=== PATIENT | female | born 1945 | race Caucasian/White ===

== ENCOUNTER 2018-01-24 14:53 | Emergency (ER) | payer MEDICAID ==
[~2018-01-24] VITALS: Ht 154.9 cm; Wt 84.0 kg
[2018-01-24] MEDS ORDERED: KETOROLAC 60MG/2ML VIAL IM ONE (18:30)
[2018-01-24 18:59] VITALS: BP 192/69
== END 2018-01-24 19:14 | disposition home or self-care (01) ==
LOC: ER 14:53
DX: M77.8 Other enthesopathies, not elsewhere classified (principal); I10 Essential (primary) hypertension; Z90.710 Acquired absence of both cervix and uterus; Z87.798 Personal history of other (corrected) congenital malformations; Z88.0 Allergy status to penicillin
CPT/HCPCS: 73560; 93971; 96372; 99284; J1885; Z7610